=== PATIENT | female | born 1980 | race Caucasian/White ===

== ENCOUNTER → 2018-09-24 | Emergency (ER) | payer MEDICAID ==
[2018-09-24] MEDS: LORAZEPAM 0.5 MG TAB PO (19:18)
[2018-09-24] MEDS: HYDROCODONE/APAP (5/325) TAB PO (19:18)
[2018-09-24] MEDS: BACLOFEN 10 MG TAB PO (19:19)
[2018-09-24] MEDS: KETOROLAC 30 MG INJ IM (19:19)
== END | disposition home or self-care (01) ==
LOC: FTE 14:38
DX: M62.838 Other muscle spasm (principal)
CPT/HCPCS: 81025; 96372; 99284-25